=== PATIENT | female | born 1955 | race Caucasian/White ===

== ENCOUNTER → 2019-05-10 | Outpatient (CLI) | payer OTHER ==
[~2019-05-10] MED LIST: AMITRIPTYLINE H10 M1; ASPIRIN EC81 M1; CALTRATE-600 W1 EACH; CITRUCEL CAPLET1 TA1; CRANBERRY400 MG; FISH OIL 1,2001 EAC4; GRALISE600 MG; SIMVASTATIN40 MG; TRILIPIX135 MG; XANAX 0.5 MG0.5 M1 PO
--- NOTE | 2019-05-18 09:23 | EEG ---
[facility] [address] [place] [address] ELECTROENCEPHALOGRAM Name: GENE RUSSELL Room #: REG [facility]#: [id number] Admission: 05/10/19 Attend Phys: Marcelino Rivera MD Discharge: Date of : 55 Report #: [id number] THIS REPORT FOR: //name// CC: Geo Rivera DATE OF SERVICE: 05/10/2019 This patient is being evaluated for the possibility of seizures. EEG was done by placing the electrodes by standard 10-20 system of electrode placement. Both referential and sequential montages were used for recording. Background activity in this patient's EEG is about 10 Hz and 30 microvolts. This is a symmetrical activity. The patient became drowsy and that is associated with bilateral slowing and vertex sharp waves. Photic stimulation was unremarkable. Throughout the record, no active epileptiform activity was noticed. IMPRESSION: This patient's EEG is unremarkable and did not show any active epileptiform activity. <ELECTRONICALLY SIGNED> By: Adalid Tomlin MD 05/18/19 0923 Adalid Tomlin MD /nt
== END ==
LOC: NEURO 08:41
DX: R56.9 Unspecified convulsions (principal); R51 Headache; R47.82 Fluency disorder in conditions classified elsewhere

== ENCOUNTER → 2019-05-15 | Outpatient (CLI) | payer OTHER ==
[2019-05-15 10:50] LABS: CALCIUM 9.9 mg/dL (8.5-10.1); CREATININE 1.1 mg/dL (0.6-1.0); POTASSIUM 4.3 mmol/L (3.5-5.1); TOTAL BILIRUBIN 0.2 mg/dL (<0.1-1.0); TOTAL PROTEIN 7.2 g/dL (6.4-8.2)
== END ==
LOC: MRI 08:50
PROVIDERS: Psychiatry & Neurology Neurology
DX: R56.9 Unspecified convulsions (principal); R51 Headache; R47.82 Fluency disorder in conditions classified elsewhere

== ENCOUNTER → 2019-07-24 | Outpatient (CLI) | payer OTHER ==
--- NOTE | ~2019-07-24 | EEG ---
[facility] [address] [place] [address] ELECTROENCEPHALOGRAM Name: GENE RUSSELL Room #: REG [facility]#: [id number] Admission: 07/24/19 Attend Phys: Marcelino Rivera MD Discharge: Date of : 55 Report #: [id number] THIS REPORT FOR: //name// CC: Geo Rivera DATE OF SERVICE: 07/24/2019 SUBJECTIVE: This patient is being evaluated for the possibility of seizure. Two-hour EEG was done. EEG was done by placing the electrode by standard 10-20 System of Electrode Placement. Both referential and sequential montages were used for recording. Background activity in this patient's EEG is 10 Hz and 30 microvolt. It is a symmetrical activity. Photic stimulation is unremarkable. The patient went to sleep and that is associated with bilateral slowing and vertex sharp waves. Throughout the record, no active epileptiform activity was noticed. IMPRESSION: This patient's EEG is unremarkable. Thank you very much for this referral. By: [id number] Adalid Tomlin MD /nt
== END ==
LOC: NEURO 08:34
DX: R56.9 Unspecified convulsions (principal); R51 Headache; R47.82 Fluency disorder in conditions classified elsewhere